=== PATIENT | female | born 1945 | race Caucasian/White ===

== ENCOUNTER → 2017-05-31 | Outpatient (CLI) | payer OTHER, BC ==
[~2017-05-31] MED LIST: ATIVAN0.5 MG PO; CARAFATE 1 GM TA1 G1 PO; COMBIVENT RESPIM4 GM INH; CYMBALTA30 MG PO; FISH OIL 1,001000 M2 PO; K-DUR 20 MEQ T20 MEQ PO; LASIX 40 MG TAB40 M2 PO; MS CONTIN15 MG PO; NORCO 10-325 T1 EACH PO; PREMPRO 0.3 MG1 EACH PO; PROTONIX40 M1 PO; STIOLTO RESPIMAT4 GM INH; STRATTERA80 MG PO; TENORMIN50 MG PO; UNICOMPLEX M TA1 TA1 PO; VITAMIN D3400 UNIT PO
== END ==
LOC: SLEEPLAB 05-07 16:03
DX: G47.33 Obstructive sleep apnea (adult) (pediatric) (principal)